=== PATIENT | male | born 1960 | race Caucasian/White ===

== ENCOUNTER 2018-07-17 20:17 | Emergency (ER) | payer BC ==
[~2018-07-17] VITALS: Ht 167.6 cm; Wt 99.8 kg
[~2018-07-17 20:17] MED LIST: ACTOPLUS MET; ALBU90OI INH; ASPI81CH PO; BUPR150T2; CIPR500 PO; CLIN300 PO; DIPH50 PO; ESCI10 PO; GLIP5 PO; GLIP5ER; GLIP5ER PO; GLYB5 PO; HYDACE5 PO; HYDR-86; IBUHYD PO; LEVO750 PO; LISI5 PO; LORA1 PO; Lovastatin10 MG PO; MELO7.5; METF500; METF500 PO; METR500 PO; NAPR550 PO; PHENA200 PO; PIOG15 PO; PIOG30 PO; Prilosec20 MG PO; RAMI5 PO; RXLORA1 PO; RXNAPNA550 PO
== END 2018-07-18 00:50 | disposition home or self-care (01) ==
LOC: ER 20:17
DX: K21.9 Gastro-esophageal reflux disease without esophagitis (principal); Z88.8 Allergy status to other drugs, medicaments and biological substances; Z88.5 Allergy status to narcotic agent; Z79.899 Other long term (current) drug therapy; Z79.84 Long term (current) use of oral hypoglycemic drugs; Z79.82 Long term (current) use of aspirin; Z79.891 Long term (current) use of opiate analgesic
CPT/HCPCS: 36415; 84484; 93005; 93010; 99284-25

== ENCOUNTER 2018-12-25 19:06 | Emergency (ER) | payer BC ==
[~2018-12-25] VITALS: Ht 167.6 cm; Wt 96.6 kg
[2018-12-25 19:36] LABS: Source, Urine Clean Catch
[2018-12-25 19:39] LABS: Appearance, Urine Clear (Clear); Bilirubin, Urine Neg (Neg); Blood, Urine Neg (Neg); Color, Urine Yellow (P-Yellow); Glucose Qualitative, Urine Neg (Neg); Ketones, Urine Neg (Neg); Leukocyte Esterase, Urine Neg (Neg); Nitrite, Urine Neg (Neg); Protein, Urine Neg (Neg); Specific Gravity, Urine 1.005 (1.003-1.022); Urobilinogen, Urine NORM (Normal)
[2018-12-25 19:59] LABS: BASOPHILS ABSOLUTE AUTO 0.02 K/mm3 (0.00-0.23); BASOPHILS PERCENT AUTO 0 % (0-2); EOSINOPHILS ABSOLUTE AUTO 0.13 K/mm3 (0.00-0.68); EOSINOPHILS PERCENT AUTO 2 % (0-6); Hematocrit 44.5 % (37.0-53.0); Hemoglobin 15.2 g/dL (13.5-17.5); IMMATURE GRAN ABSOLUTE AUTO 0.04 K/mm3 (0.00-0.10); IMMATURE GRAN PERCENT AUTO 1 % (0-1); LYMPHOCYTES ABSOLUTE AUTO 1.13 K/mm3 (0.84-5.20); LYMPHOCYTES PERCENT AUTO 17 % (21-46); MONOCYTES ABSOLUTE AUTO 0.82 K/mm3 (0.16-1.47); MONOCYTES PERCENT AUTO 12 % (4-13); Mean Corpuscular HGB 31.7 pg (26.0-34.0); Mean Corpuscular HGB Conc 34.2 g/dL (31.5-36.5); Mean Corpuscular Volume 93 fL (80-100); Mean Platelet Volume 10.5 fL (9.1-12.4); NEUTROPHILS ABSOLUTE AUTO 4.69 K/mm3 (1.96-9.15); NEUTROPHILS PERCENT AUTO 69 % (41-73); Platelet Count 189 K/mm3 (150-400); RDW Coefficient Variation 12.9 % (11.7-14.2); RDW Standard Deviation 44.3 fL (35.1-46.3); Red Blood Cell Count 4.79 M/mm3 (4.30-5.90); White Blood Cell Count 6.83 K/mm3 (4.00-11.30)
[2018-12-25 21:11] LABS: Alanine Aminotransfer (ALT/SGP 39 U/L (12-78); Albumin, Blood 4.2 g/dL (3.4-5.0); Albumin/Globulin Ratio 1.2 (0.8-1.8); Alk Phos 94 U/L (50-136); Anion Gap 9 mmol/L (6-16); Aspartate Aminotrans (AST/SGOT 16 U/L (12-37); Bilirubin, Total 1.1 mg/dL (0.1-1.0); Blood Urea Nitrogen 14 mg/dL (8-24); Bun/Creatinine Ratio 36.8 (12.0-20.0); CO2, Blood 22 mmol/L (21-32); Chloride, Blood 101 mmol/L (98-108); Creatinine, Blood 0.38 mg/dL (0.60-1.20); Globulin, Blood 3.5 g/dL (2.2-4.0); Glomerular Filtration Rate >60 (60-); Glucose, Blood 171 mg/dL (70-99); Potassium, Blood 3.6 mmol/L (3.5-5.5); Sodium, Blood 132 mmol/L (136-145); Total Protein, Blood 7.7 g/dL (6.4-8.2)
[2018-12-25] MEDS ORDERED: ONDA4ODT MM (22:45)
== END 2018-12-25 23:04 | disposition home or self-care (01) ==
LOC: ER 19:06
PROVIDERS: Physician Assistant
DX: R19.7 Diarrhea, unspecified (principal); R10.13 Epigastric pain; R11.2 Nausea with vomiting, unspecified; Z88.8 Allergy status to other drugs, medicaments and biological substances; Z88.5 Allergy status to narcotic agent; Z79.899 Other long term (current) drug therapy; Z79.84 Long term (current) use of oral hypoglycemic drugs; Z79.82 Long term (current) use of aspirin; E11.9 Type 2 diabetes mellitus without complications; I10 Essential (primary) hypertension; F17.200 Nicotine dependence, unspecified, uncomplicated
CPT/HCPCS: 80053; 81003; 83690; 85025; 96361; 96374; 99284-25; A9270-GY; J2405; J7030

== ENCOUNTER 2019-11-29 14:40 | Emergency (ER) | payer BC ==
[~2019-11-29] VITALS: Ht 167.6 cm; Wt 104.3 kg
[~2019-11-29 14:40] MED LIST changes: +ONDA4ODT MM
[2019-11-29 15:12] LABS: BASOPHILS ABSOLUTE AUTO 0.02 K/mm3 (0.00-0.23); BASOPHILS PERCENT AUTO 0 % (0-2); EOSINOPHILS ABSOLUTE AUTO 0.11 K/mm3 (0.00-0.68); EOSINOPHILS PERCENT AUTO 2 % (0-6); Hematocrit 41.6 % (37.0-53.0); Hemoglobin 14.4 g/dL (13.5-17.5); IMMATURE GRAN ABSOLUTE AUTO 0.04 K/mm3 (0.00-0.10); IMMATURE GRAN PERCENT AUTO 1 % (0-1); LYMPHOCYTES PERCENT AUTO 33 % (21-46); MONOCYTES ABSOLUTE AUTO 0.66 K/mm3 (0.16-1.47); MONOCYTES PERCENT AUTO 10 % (4-13); Mean Corpuscular HGB 32.9 pg (26.0-34.0); Mean Corpuscular HGB Conc 34.6 g/dL (31.5-36.5); Mean Corpuscular Volume 95 fL (80-100); Mean Platelet Volume 10.2 fL (9.1-12.4); NEUTROPHILS ABSOLUTE AUTO 3.54 K/mm3 (1.96-9.15); NEUTROPHILS PERCENT AUTO 55 % (41-73); Platelet Count 218 K/mm3 (150-400); RDW Coefficient Variation 12.8 % (11.7-14.2); RDW Standard Deviation 44.8 fL (35.1-46.3); Red Blood Cell Count 4.38 M/mm3 (4.30-5.90); White Blood Cell Count 6.47 K/mm3 (4.00-11.30)
[2019-11-29 15:41] LABS: Alanine Aminotransfer (ALT/SGP 40 U/L (12-78); Albumin, Blood 3.9 g/dL (3.4-5.0); Albumin/Globulin Ratio 1.1 (0.8-1.8); Alk Phos 75 U/L (50-136); Anion Gap 10 mmol/L (6-16); Aspartate Aminotrans (AST/SGOT 27 U/L (12-37); Bilirubin, Total 0.8 mg/dL (0.1-1.0); Blood Urea Nitrogen 13 mg/dL (8-24); Bun/Creatinine Ratio 24.4 (12.0-20.0); CO2, Blood 23 mmol/L (21-32); Chloride, Blood 102 mmol/L (98-108); Creatinine, Blood 0.53 mg/dL (0.60-1.20); Globulin, Blood 3.6 g/dL (2.2-4.0); Glomerular Filtration Rate >60 (60-); Glucose, Blood 161 mg/dL (70-99); Potassium, Blood 3.9 mmol/L (3.5-5.5); Sodium, Blood 135 mmol/L (136-145); Total Protein, Blood 7.5 g/dL (6.4-8.2); Troponin I <0.015 ng/mL (0.000-0.040)
[2019-11-29] MEDS ORDERED: Omeprazole20 M1 PO (17:47)
== END 2019-11-29 18:06 | disposition home or self-care (01) ==
LOC: ER 14:40
PROVIDERS: Emergency Medicine
DX: R07.9 Chest pain, unspecified (principal); K21.9 Gastro-esophageal reflux disease without esophagitis; F17.210 Nicotine dependence, cigarettes, uncomplicated; Z79.82 Long term (current) use of aspirin; Z88.5 Allergy status to narcotic agent; Z79.899 Other long term (current) drug therapy
CPT/HCPCS: 36415; 71046; 80053; 83690; 84484; 85025; 85379; 93005; 93010; 96360; 99285-25; J7030

== ENCOUNTER 2020-05-23 09:36 | Day surgery (SDC) | payer BC ==
[~2020-05-23] VITALS: Ht 167.6 cm; Wt 88.9 kg
[~2020-05-23 09:36] MED LIST changes: +Amaryl1 MG PO; +Omeprazole20 M1 PO; +SITA100T2 PO; +Viagra100 MG PO
[2020-05-23] MEDS ORDERED: VITAMIN B COMP1 EACH (09:53)
== END 2020-05-23 11:13 | disposition home or self-care (01) ==
LOC: ORSCSDS 09:36
PROVIDERS: Internal Medicine Gastroenterology
PROC: 0DB68ZX Excision of Stomach, Via Natural or Artificial Opening Endoscopic, Diagnostic (ICD-10-PCS; principal; 2020-05-23 10:45)
PROC: 0DB58ZX Excision of Esophagus, Via Natural or Artificial Opening Endoscopic, Diagnostic (ICD-10-PCS; principal; 2020-05-23 10:45)
PROC: 0D758ZZ Dilation of Esophagus, Via Natural or Artificial Opening Endoscopic (ICD-10-PCS; principal; 2020-05-23 10:45)
DX: K21.9 Gastro-esophageal reflux disease without esophagitis (principal); K22.2 Esophageal obstruction; K44.9 Diaphragmatic hernia without obstruction or gangrene; K20.90 Esophagitis, unspecified without bleeding; I10 Essential (primary) hypertension; E11.9 Type 2 diabetes mellitus without complications; J44.9 Chronic obstructive pulmonary disease, unspecified; E78.5 Hyperlipidemia, unspecified; Z79.84 Long term (current) use of oral hypoglycemic drugs; Z79.899 Other long term (current) drug therapy; F17.210 Nicotine dependence, cigarettes, uncomplicated
CPT/HCPCS: 82947; 88305; 88342; J2704; J7120

== ENCOUNTER 2025-03-02 12:53 | Inpatient (IN) | payer BC ==
[~2025-03-02] VITALS: Ht 167.6 cm; Wt 67.1 kg
[~2025-03-02 12:53] MED LIST changes: +VITAMIN B COMP1 EACH
[2025-03-02] MEDS ORDERED: JARDIANCE25 MG PO (13:09)
[2025-03-02] MEDS ORDERED: HYDROCODONE-AC1 EA19 PO (13:10)
[2025-03-02] MEDS ORDERED: FentaNYL Citrate 50 MCG/ML 2 ML Injection IV PRN ×2 (13:30→15:25)
[2025-03-02 14:38] LABS: Alanine Aminotransfer (ALT/SGP 30.0 U/L (12-78); Albumin, Blood 4.0 g/dL (3.4-5.0); Albumin/Globulin Ratio 1.3 (0.8-1.8); Anion Gap 8.0 mmol/L (3-11); Aspartate Aminotrans (AST/SGOT 19.0 U/L (12-37); Bilirubin, Total 0.8 mg/dL (0.1-1.0); Blood Urea Nitrogen 16.0 mg/dL (8-24); CO2, Blood 26.0 mmol/L (21-32); Calcium, Blood 8.6 mg/dL (8.5-10.1); Chloride, Blood 105.0 mmol/L (98-108); Creatinine, Blood 0.36 mg/dL (0.60-1.20); Globulin, Blood 3.1 g/dL (2.2-4.0); Glucose, Blood 108.0 mg/dL (70-99); Potassium, Blood 3.7 mmol/L (3.5-5.5); Sodium, Blood 135.0 mmol/L (136-145); Total Protein, Blood 7.1 g/dL (6.4-8.2)
[2025-03-02 14:48] LABS: BASOPHILS ABSOLUTE AUTO 0.03 K/mm3 (0.00-0.23); BASOPHILS PERCENT AUTO 0 % (0-2); EOSINOPHILS ABSOLUTE AUTO 0.06 K/mm3 (0.00-0.68); EOSINOPHILS PERCENT AUTO 1 % (0-6); Hematocrit 41.4 % (37.0-53.0); Hemoglobin 14.0 g/dL (13.5-17.5); IMMATURE GRAN ABSOLUTE AUTO 0.03 K/mm3 (0.00-0.10); IMMATURE GRAN PERCENT AUTO 0 % (0-1); LYMPHOCYTES ABSOLUTE AUTO 1.65 K/mm3 (0.84-5.20); LYMPHOCYTES PERCENT AUTO 21 % (21-46); MONOCYTES ABSOLUTE AUTO 0.59 K/mm3 (0.16-1.47); MONOCYTES PERCENT AUTO 8 % (4-13); Mean Corpuscular HGB Conc 33.8 g/dL (31.5-36.5); Mean Corpuscular Volume 90 fL (80-100); NEUTROPHILS ABSOLUTE AUTO 5.49 K/mm3 (1.96-9.15); NEUTROPHILS PERCENT AUTO 70 % (41-73); NRBC ABSOLUTE 0.00 K/mm3 (0.00-0.02); NRBC Auto 0.0 /100 WBC (0.0-0.2); Platelet Count 197 K/mm3 (150-400); RDW Coefficient Variation 14.0 % (11.7-14.2); RDW Standard Deviation 46.6 fL (35.1-46.3)
[2025-03-02] MEDS ORDERED: HYDROcodone 5-APAP 325 TAB PO PRN (15:25)
[2025-03-02] MEDS ORDERED: NS 1,000 ML IV SCH (15:25)
[2025-03-02 15:43] LABS: Prothrombin Time Results 11.5 Sec (9.7-11.5)
[2025-03-02] MEDS ORDERED: Insulin Human Lispro 100 Units/ML 3ML Syringe SC SCH (16:30)
[2025-03-02 18:45] VITALS: BP 132/81
--- NOTE | 2025-03-02 18:56 | NUR ---
ADMIT: ARRIVED TO ROOM FROM ED VIA JORDAN, AWAKE, A&OX4, DENIES ANY NUMBNESS OR TINGLING, C/O 7/10 L HIP PAIN, 1 NORCO GIVEN, ORIENTED TO ROOM AND CALL LIGHT USE, REPORT TO NOC RN.
[2025-03-02] MEDS ORDERED: NAFTIFINE HCL TOP (23:55)
[2025-03-02] MEDS ORDERED: Triamcinolone A15 G2 TOP (23:56)
[2025-03-03] VITALS (14 sets, daily range): BP systolic 111–138; BP diastolic 60–84
[2025-03-03 05:50] LABS: Hematocrit 39.2 % (37.0-53.0); Hemoglobin 13.8 g/dL (13.5-17.5); Mean Corpuscular HGB Conc 35.2 g/dL (31.5-36.5); Mean Corpuscular Volume 90 fL (80-100); NRBC ABSOLUTE 0.00 K/mm3 (0.00-0.02); NRBC Auto 0.0 /100 WBC (0.0-0.2); Platelet Count 179 K/mm3 (150-400); RDW Coefficient Variation 14.0 % (11.7-14.2); RDW Standard Deviation 46.4 fL (35.1-46.3)
[2025-03-03 06:27] LABS: Anion Gap 11.0 mmol/L (3-11); Blood Urea Nitrogen 15.0 mg/dL (8-24); CO2, Blood 22.0 mmol/L (21-32); Calcium, Blood 8.4 mg/dL (8.5-10.1); Chloride, Blood 108.0 mmol/L (98-108); Creatinine, Blood 0.28 mg/dL (0.60-1.20); Glucose, Blood 123.0 mg/dL (70-99); Potassium, Blood 3.6 mmol/L (3.5-5.5); Sodium, Blood 137.0 mmol/L (136-145)
--- NOTE | 2025-03-03 06:43 | NUR ---
SHIFT SUMMARY AT START OF SHIFT, PT LYING IN BED SLEEPING. PT PLEASANT AND COOPERATIVE WITH CARE TODAY. PT SLEPT WELL THROUGHOUT NIGHT. PT LIVES AT HOME WITH ROOM MATES. SAYS ROOM MATES HELP HIM AT HOME WITH ADLS. PT COULD USE REFERRAL TO HOME HEALTH.
[2025-03-03] MEDS ORDERED: CeFAZolin Sodium 2,000 MG in NS 100 ML IV SCH (09:05)
[2025-03-03] MEDS ORDERED: Tranexamic Acid 100 ML IV SCH (09:05)
[2025-03-03] MEDS ORDERED: Ropivacaine 0.5% HCl/Pf 123.125 MG,EPINEPHrine HCL 0.25 MG,Ketorolac Tromethamine 15 MG... INFIL SCH (09:10)
[2025-03-03] MEDS ORDERED: Chlorhexidine Mouth Care 15 ML UDC MT SCH (09:10)
[2025-03-03] MEDS ORDERED: FentaNYL Citrate 50 MCG/ML 2 ML Injection ONE (09:17)
[2025-03-03] MEDS ORDERED: Rocuronium Bromide 10 MG/ML 5ML Injection IV ONE (09:17)
[2025-03-03] MEDS ORDERED: Dexamethasone Sod Phos 10 MG/ML 1ML VIAL ONE (09:19)
[2025-03-03] MEDS ORDERED: Ondansetron HCl 2 MG / ML 2ML Vial ONE (09:19)
[2025-03-03] MEDS ORDERED: Phenylephrine HCl 100 MCG/ML-NS 10MLSYR (1MG/10ML) ONE (09:41)
[2025-03-03] MEDS ORDERED: HYDROmorphone HCl/Pf 1MG SYR ONE (10:40)
[2025-03-03] MEDS ORDERED: Sugammadex Sodium 200 MG/2ML SDV (100 MG/ML) ONE (10:49)
--- NOTE | 2025-03-03 11:47 | NUR ---
POST-OP PATIENT BACK TO ROOM 215, VSS, LUNG SOUNDS CLEAR. IVF RUNNING. TOLERATING PO INTAKE. L HIP WITH BULKY GAUZE, AND TAPE C/D/I. DENIES PAIN AT THIS TIME. CALL LIGHT IN REACH.
--- NOTE | 2025-03-03 18:41 | NUR ---
SHIFT SUMMARY PATIENT IS AOX4, POD 0 L NARCISA HIP. DENIES PAIN AT THIS TIME. ABLE TO WORK WITH PT, BULKY DRSSING X3 IS C/D/I. NOT ABLE TO WALK OR STAND ON L LEG D/T POLIO HX, PATIENT DID NOT BRING IN HIS LEG BRACE. FAMILY WILL BRING IT IN THE MORNING. TOLERATING PO INTAKE. ABLE TO MAKE NEEDS KNOWN, CALL LIGHT IN REACH.
[2025-03-04 00:33] VITALS: BP 118/73
[2025-03-04 04:50] VITALS: BP 122/77
--- NOTE | 2025-03-04 05:46 | NUR ---
DISPENSARY CLERK SUMMARY PT IS POD 0 FOR A L HIP RODDING. 2 GAUZE DRESSINGS TO L HIP INTACT WITH A SMALL AREA OF RED SHADOWING TO PROXIMAL DRESSING THAT HAS BEEN UNCHANGED THROUGH THE NIGHT. PAIN MANAGED WITH PO PAID MEDS. PT GOT UP WITH PHYSICAL THERAPY DURING DAY SHIFT. DUE TO PT'S HX OF POLIO HE USES A LEG BRACE ON L LEG AT BASELINE FOR AMBULATION. PT HOPING A FRIEND OR FAMILY MEMBER CAN BRING HIS BRACE IN TODAY SO THAT PHYSICAL THERAPY CAN SEE IF IT WILL STILL BE ABLE TO BE USED POST OP. VSS, WCTM.
[2025-03-04 06:39] LABS: Hematocrit 36.9 % (37.0-53.0); Hemoglobin 12.6 g/dL (13.5-17.5); Mean Corpuscular HGB Conc 34.1 g/dL (31.5-36.5); Mean Corpuscular Volume 91 fL (80-100); NRBC ABSOLUTE 0.00 K/mm3 (0.00-0.02); NRBC Auto 0.0 /100 WBC (0.0-0.2); Platelet Count 167 K/mm3 (150-400); RDW Coefficient Variation 14.2 % (11.7-14.2); RDW Standard Deviation 47.0 fL (35.1-46.3)
[2025-03-04 06:57] LABS: Anion Gap 6.0 mmol/L (3-11); Blood Urea Nitrogen 11.0 mg/dL (8-24); CO2, Blood 24.0 mmol/L (21-32); Calcium, Blood 8.3 mg/dL (8.5-10.1); Chloride, Blood 110.0 mmol/L (98-108); Creatinine, Blood 0.27 mg/dL (0.60-1.20); Glucose, Blood 132.0 mg/dL (70-99); Potassium, Blood 3.4 mmol/L (3.5-5.5); Sodium, Blood 137.0 mmol/L (136-145)
[2025-03-04 07:33] VITALS: BP 120/75
[2025-03-04] MEDS ORDERED: XARELTO20 MG PO (12:23)
--- NOTE | 2025-03-04 13:13 | NUR ---
DISCHARGE PT EDUCATED ON AND RECEIVED PRINTED DISCHARGE INSTRUCTIONS AND VERBALIZED AN UNDERSTANDING. AQUACEL DRESSINGS PLACED TO LEFT HIP. EXTRA DRESSINGS GIVEN TO PT. IV DC'D. FWW DELIVERED TO FAMILY MEMBER. PT LEFT WITH ALL PERSONAL BELONGINGS AND PT ESCORTED OUT TO VEHICLE IN W/C WITH DAUGHTER TO TAKE PT HOME.
== END 2025-03-04 13:16 | disposition home or self-care (01) | DRG 481 ==
LOC: ER 12:53 → SURS 12:54
PROVIDERS: Emergency Medicine; Orthopaedic Surgery; ADMIT Internal Medicine
PROC: 0QS736Z Reposition Left Upper Femur with Intramedullary Internal Fixation Device, Percutaneous Approach (ICD-10-PCS; principal; 2025-03-03 09:00)
DX: S72.22XA Displaced subtrochanteric fracture of left femur, initial encounter for closed fracture (principal); E87.1 Hypo-osmolality and hyponatremia; I48.91 Unspecified atrial fibrillation; G14 Postpolio syndrome; J44.9 Chronic obstructive pulmonary disease, unspecified; I10 Essential (primary) hypertension; F17.200 Nicotine dependence, unspecified, uncomplicated; M19.90 Unspecified osteoarthritis, unspecified site; G89.29 Other chronic pain; E78.5 Hyperlipidemia, unspecified; E86.0 Dehydration; K21.9 Gastro-esophageal reflux disease without esophagitis; E11.42 Type 2 diabetes mellitus with diabetic polyneuropathy; W18.39XA Other fall on same level, initial encounter; Z88.8 Allergy status to other drugs, medicaments and biological substances; Z88.5 Allergy status to narcotic agent; Z79.84 Long term (current) use of oral hypoglycemic drugs
CPT/HCPCS: 36415; 73502; 80048; 80053; 82947; 85025; 85027; 85610; 86850; 86900; 86901; 97110; 97116; 97161; 97530; A9270; J0166; J0690; J0735; J1100; J1171; J1885; J2371; J2405; J2704; J2795; J3010; J7030